=== PATIENT | female | born 1970 | race Caucasian/White ===

== ENCOUNTER 2016-07-03 10:13 | Emergency (ER) | payer OTHER ==
[~2016-07-03] VITALS: Ht 160 cm; Wt 71.7 kg
[~2016-07-03 10:13] MED LIST: ALBUTEROL; CEPH-443 PO; DOCU-144 PO; TRAM50TA2 PO
[2016-07-03 10:32] VITALS: Ht 160 cm; Wt 71.7 kg
[2016-07-03] MEDS ORDERED: KETOROLAC 30 MG INJ IM STA (11:38)
[2016-07-03 12:31] LABS: ADD UMIC YES; URINE BILIRUBIN (Dip) NEGATIVE (NEGATIVE); URINE BLOOD (Dip) 3+ (NEGATIVE); URINE COLOR LT. YELLOW (YELLOW); URINE GLUCOSE (Dip) NEGATIVE (NEGATIVE); URINE KETONES (Dip) NEGATIVE (NEGATIVE); URINE LEUKOCYTE ESTERASE (Dip) 1+ (NEGATIVE); URINE NITRITE (Dip) NEGATIVE (NEGATIVE); URINE TOTAL PROTEIN (Dip) TRACE (NEGATIVE); URINE UROBILINOGEN (Dip) 0.2 E.U./dL (0.1-1.0)
[2016-07-03 13:12] LABS: URINE RBCS 25-50 /HPF (0)
[2016-07-03 13:13] LABS: BACTERIA,URINE FEW
[2016-07-03] MEDS ORDERED: PHEN-538 PO (13:19)
[2016-07-03] MEDS ORDERED: NITR-58 PO (13:19)
--- NOTE | 2016-07-03 13:38 | ERD ---
ER Documentation Chief Complaint Date/Time DATE: 07/03/16 TIME: 13:36 Chief Complaint DYSURIA & HEMATURIA, PELVIC PAIN, FLANK PAIN SINCE THURSDAY. HPI This is a 46-year-old female presenting to the emergency department complaining of painful urination and mild hematuria since Thursday. Patient states that she also has moderate in severity tender pelvic pain and flank pain. Patient denies any fevers. Patient states that she has had a urinary tract infection about 6 months ago. Patient denies taking any medications for this. Denies any medical problems ROS All systems reviewed and are negative except as per history of present illness. Medications Home Meds Active Scripts Phenazopyridine Hcl* (Pyridium*) 200 Mg Tab, 200 MG PO TID Y for URINARY PAIN, # 15 TAB Prov:MAIDA PARKER PA-C 07/03/16 Nitrofurantoin Monohyd Macrocr* (Macrobid*) 100 Mg Capsr, 100 MG PO BID for 7 Days, CAP Prov:MAIDA PARKER PA-C 07/03/16 Cephalexin* (Keflex*) 500 Mg Capsule, 500 MG PO QID for 5 Days, CAP Prov:BRIAN ARANGO MD 02/08/16 Tramadol HCl (Tramadol HCl) 50 Mg Tablet, 50 MG PO Q4 Y for PAIN, #20 TAB Prov:BRIAN ARANGO MD 02/08/16 Docusate Sodium* (Colace*) 100 Mg Capsule, 100 MG PO TID, #30 CAP Prov:BRIAN ARANGO MD 02/08/16 Reported Medications [Albuterol] No Conflict Check 05/08/09 Allergies Allergies: Coded Allergies: No Known Allergy (Unverified , 07/03/16) PMhx/Soc Hx Neurological Disorder: No Hx Respiratory Disorders: Yes (asthma ) Hx Cardiac Disorders: No Hx Miscellaneous Medical Probl: No Hx Alcohol Use: No Hx Substance Use: No Hx Tobacco Use: No Physical Exam Vitals Vital Signs Date Time Temp Pulse Resp B/P Pulse Ox O2 Delivery O2 Flow Rate FiO2 07/03/16 10:32 98.7 78 20 136/69 99 Physical Exam General: well-developed/well-nourished, in no apparent distress, non-toxic appearing HENT: NC/AT Eyes: Conjunctiva normal Neck: Supple Pulm: CTA bilaterally, normal breathing CV: Normal S1S2 GI: Soft, non-distended, normal bowel sounds, TTP on suprapubic region Back: No midline tenderness, no masses, No CVAT Ext: No clubbing, cyanosis, or edema Neuro: Alert and orientated Skin: intact, normal turgor Psych: Normal mood and mentation Results 24 hrs Laboratory Tests Test 07/03/16 12:00 Urine Bacteria FEW Urine Bilirubin NEGATIVE Urine Clarity CLOUDY Urine Color LT. YELLOW Urine Epithelial Cells FEW Urine Glucose NEGATIVE% Urine Hemoglobin 3+ Urine Ketones NEGATIVE Urine Leukocyte Esterase 1+ Urine Microscopic RBC 25-50/HPF Urine Microscopic WBC >200/HPF Urine Nitrite NEGATIVE Urine Specific [place] 1.020 Urine Total Protein TRACE Urine Urobilinogen 0.2 E.U./dL Urine pH 6.0 Current Medications Medications (Trade) Dose Ordered Sig/Cole Route PRN Reason Start Time Stop Time Status Last Admin Dose Admin Ketorolac Tromethamine (Toradol) 30 mg ONCE STAT IM 07/03/16 11:38 07/03/16 11:40 DC 07/03/16 11:49 Procedures/MDM MDM: 46-year-old female presents to the ER with u symptoms most consistent with a urinary tract infection. Low suspicion for pyelonephritis, nephrolithiasis, ovarian torsion due to physical examination and diagnostic testing. Patient is afebrile and she appears well, there was no evidence of CVA tenderness. Urinalysis did show evidence of a urinary tract infection with hematuria. Patient was given Toradol in the ED. Patient is hematuria stable and suitable for discharge. Prescription Macrobid and Pyridium was provided. Discussed return to the ER for any worsening symptoms. Patient understands and agrees with this plan. Departure Diagnosis: Primary Impression: UTI (urinary tract infection) Condition: Stable Patient Instructions: Understanding Urinary Tract Infections (UTIs) Additional Instructions: Visite a brandi wilson para un EXAMEN.Regrese a estas instalaciones si no se mejora chrissie esperbamos o chrissie le dijimos. [place] toda la medicina crista y chrissie se le indic. Regrese a estas instalaciones si no se mejora chrissie esperbamos o chrissie le dijimos. MAIDA PARKER PA-C Jul 03, 2016 13:38
== END 2016-07-03 13:37 | disposition home or self-care (01) ==
LOC: FTE 10:13
DX: N39.0 Urinary tract infection, site not specified (principal); J45.909 Unspecified asthma, uncomplicated; R10.2 Pelvic and perineal pain
CPT/HCPCS: 81001; 81003; 87086; 96372; J1885; Z7502